=== PATIENT | male | born 1945 | race Hispanic/Latino ===

== ENCOUNTER → 2024-06-20 | Outpatient (REF) | payer BC, OTHER ==
[~2024-06-20] MED LIST: ASPIRIN EC81 MG PO; CENTRUM ADULTS1 EACH PO; CRESTOR40 MG PO; METFORMIN HCL500 M1 PO; SYNJARDY XR 121 EACH PO; VITAMIN C1000 MG PO
[2024-06-20 11:14] LABS: BASOPHILS # (AUTO) 0.1 (0.0-0.1); BASOPHILS % 0.6 % (0.0-1.0); EOSINOPHILS # (AUTO) 0.1 (0.0-0.4); EOSINOPHILS % 0.9 % (0.0-6.0); HEMATOCRIT 45.3 % (38.2-49.6); HEMOGLOBIN 15.3 g/dL (14.0-18.0); LYMPHOCYTES # (AUTO) 2.2 (1.0-3.2); LYMPHOCYTES % 25.4 % (18.0-39.1); MEAN CORPUSCULAR HEMOGLOBIN 31.6 pg (28-32); MEAN CORPUSCULAR HGB CONC 33.8 g/dL (31-35); MEAN CORPUSCULAR VOLUME 93.6 fL (81-99); MONOCYTES % 11.2 % (4.4-11.3); NEUTROPHILS # (AUTO) 5.3 (2.1-6.9); NEUTROPHILS % 61.7 % (38.7-80.0); PLATELET COUNT 166 x10e3/uL (140-360); RED BLOOD COUNT 4.84 x10e6/uL (4.3-5.7); RED CELL DISTRIBUTION WIDTH 13.1 % (11.7-14.4); WHITE BLOOD COUNT 8.54 x10e3/uL (4.8-10.8)
== END ==
LOC: RAD 09:28 → EDSTATUS 06-25 11:30 → RAD 06-25 12:55
PROVIDERS: ATTEND Internal Medicine Gastroenterology
DX: Z01.818 Encounter for other preprocedural examination (principal); Z12.11 Encounter for screening for malignant neoplasm of colon
CPT/HCPCS: 36415; 85025; 93005